=== PATIENT | female | born 1995 | race Caucasian/White ===

== ENCOUNTER 2017-01-25 22:37 | Emergency (ER) | payer SELFPAY ==
[2017-01-25 22:40] VITALS: BP 120/84
== END 2017-01-26 02:15 | disposition left against medical advice (07) ==
LOC: ED 22:37
DX: Z53.21 Procedure and treatment not carried out due to patient leaving prior to being seen by health care provider (principal)

== ENCOUNTER 2020-03-11 21:41 | Emergency (ER) | payer BC | END 2020-03-11 22:26 | disposition left against medical advice (07) | LOC: ED 21:41 | DX: Z53.21 Procedure and treatment not carried out due to patient leaving prior to being seen by health care provider (principal) ==